=== PATIENT | male | born 1945 | race Caucasian/White ===

== ENCOUNTER → 2022-11-17 09:30 | Outpatient (BNVA) | payer MEDICARE, SELFPAY | PROVIDERS: PCP Family Medicine; Visit Provider Podiatrist Foot & Ankle Surgery | DX: Q82.8 Other specified congenital malformations of skin (principal) | CPT/HCPCS: 17110; 99203 ==

== ENCOUNTER → 2022-12-29 11:01 | Outpatient (BNVA) | payer MEDICARE, SELFPAY | PROVIDERS: PCP Family Medicine; Visit Provider Podiatrist Foot & Ankle Surgery | DX: Q82.8 Other specified congenital malformations of skin (principal); L84 Corns and callosities | CPT/HCPCS: 17110 ==

== ENCOUNTER → 2025-09-01 10:04 | Outpatient (BNVA) | payer MEDICARE, SELFPAY | PROVIDERS: PCP Family Medicine; Visit Provider Dermatology | DX: L21.8 Other seborrheic dermatitis (principal); L28.1 Prurigo nodularis | CPT/HCPCS: 99204 ==